=== PATIENT | male | born 1955 | race Caucasian/White ===

== ENCOUNTER 2021-09-10 15:08 | Day surgery (SDC) | payer OTHER ==
[2021-09-10] MEDS ORDERED: LIDOCAINE HCL 2% 100 MG/5 ML IJ ONE (15:09)
[2021-09-10] MEDS ORDERED: DIPRIVAN 200 MG/20 ML IV ONE (17:34)
[2021-09-10] MEDS ORDERED: Lactated Ringers 1,000 ML IV ONE (18:10)
--- NOTE | 2021-09-10 21:42 | XRAY ---
Indication: Bilateral L4-S1 MBB. Intraoperative fluoroscopy provided for 10 seconds. Single digital spot image submitted for interpretation demonstrates posterior needle tips projecting over the expected left and right L4-S1 nerve roots. Correlate with intraoperative findings/report.
--- NOTE | 2021-09-11 09:04 | XRAY ---
10 seconds fluoroscopy time in surgery for bilateral L4-S1 MBB.
== END 2021-09-10 18:06 | disposition home or self-care (01) ==
LOC: SDC-PAIN 15:08
PROVIDERS: ATTEND Psychiatry & Neurology Pain Medicine
DX: M47.816 Spondylosis without myelopathy or radiculopathy, lumbar region (principal); I10 Essential (primary) hypertension; E78.00 Pure hypercholesterolemia, unspecified; M19.90 Unspecified osteoarthritis, unspecified site; Z79.899 Other long term (current) drug therapy
CPT/HCPCS: 64493; 64494; 72020; 77002; J2704

== ENCOUNTER 2021-10-01 08:56 | Day surgery (SDC) | payer OTHER ==
[2021-10-01] MEDS ORDERED: Depo-Medrol 40 MG/ML IM ONE (08:57)
[2021-10-01] MEDS ORDERED: Xylocaine 1% Vial 30 ML PF IJ ONE (08:57)
[2021-10-01] MEDS ORDERED: BUPIVACAINE 0.5% VIAL IJ ONE (08:57)
--- NOTE | 2021-10-01 12:20 | XRAY ---
Indication: Right hip and right greater trochanter bursa injections. Intraoperative fluoroscopy provided for 36 seconds. 2 digital spot image submitted for interpretation demonstrates needle tip projecting lateral to right femur neck. Second needle tip lateral to greater trochanter. Small amount of contrast injected for both needle tip placement. Correlate with intraoperative findings/report.
--- NOTE | 2021-10-01 12:23 | XRAY ---
36 seconds fluoroscopy time in surgery for injections of the greater trochanter and intra-articular joint space of the right hip.
== END 2021-10-01 10:54 | disposition home or self-care (01) ==
LOC: SDC-PAIN 08:56
PROVIDERS: ATTEND Psychiatry & Neurology Pain Medicine
DX: M16.11 Unilateral primary osteoarthritis, right hip (principal); M70.61 Trochanteric bursitis, right hip; I10 Essential (primary) hypertension; Z79.899 Other long term (current) drug therapy
CPT/HCPCS: 20610; 73502; 77002; J1030; J2001; Q9966

== ENCOUNTER 2021-10-22 10:51 | Day surgery (SDC) | payer OTHER ==
[2021-10-22] MEDS ORDERED: BUPIVACAINE 0.5% VIAL IJ ONE (10:52)
[2021-10-22] MEDS ORDERED: Lactated Ringers 1,000 ML IV ONE (12:50)
[2021-10-22] MEDS ORDERED: DIPRIVAN 200 MG/20 ML IV ONE (13:14)
--- NOTE | 2021-10-22 15:02 | XRAY ---
Indication: Bilateral L4-S1 MBB. Intraoperative fluoroscopy provided for 11 seconds. Single digital spot image submitted for interpretation demonstrate posterior needle tips projecting over the expected left and right L4-S1 nerve roots. Correlate with intraoperative findings/report.
--- NOTE | 2021-10-22 15:10 | XRAY ---
11 seconds of fluoroscopy was used in surgery for a bilateral L4-S1 MBB.
== END 2021-10-22 13:33 | disposition home or self-care (01) ==
LOC: SDC-PAIN 10:51
PROVIDERS: ATTEND Psychiatry & Neurology Pain Medicine
DX: M47.816 Spondylosis without myelopathy or radiculopathy, lumbar region (principal); I10 Essential (primary) hypertension
CPT/HCPCS: 64493; 64494; 72020; 77002; J2704

== ENCOUNTER 2021-11-26 10:48 | Day surgery (SDC) | payer OTHER ==
[2021-11-26] MEDS ORDERED: BUPIVACAINE 0.5% VIAL IJ ONE (10:49)
[2021-11-26] MEDS ORDERED: Xylocaine 1% Vial 30 ML PF IJ ONE (10:49)
[2021-11-26] MEDS ORDERED: Depo-Medrol 40 MG/ML IM ONE (10:49)
[2021-11-26] MEDS ORDERED: DIPRIVAN 200 MG/20 ML IV ONE (14:16)
[2021-11-26] MEDS ORDERED: Lactated Ringers 1,000 ML IV ONE (14:48)
--- NOTE | 2021-11-26 15:03 | XRAY ---
Indication: Right L4-S1 RFA. Intraoperative fluoroscopy provided for 21 seconds. 4 digital spot image submitted for interpretation demonstrates posterior needle tips projecting over the expected right L4-S1 nerve roots. Correlate with intraoperative findings/report.
--- NOTE | 2021-11-26 15:11 | XRAY ---
21 seconds fluoroscopy time in surgery for right L4-S1 RFA.
== END 2021-11-26 14:50 | disposition home or self-care (01) ==
LOC: SDC-PAIN 10:48
PROVIDERS: ATTEND Psychiatry & Neurology Pain Medicine
DX: M47.816 Spondylosis without myelopathy or radiculopathy, lumbar region (principal); I10 Essential (primary) hypertension; Z79.899 Other long term (current) drug therapy
CPT/HCPCS: 64635; 64636; 72100; 77002; J1030; J2001; J2704

== ENCOUNTER 2021-12-03 10:44 | Day surgery (SDC) | payer OTHER ==
[2021-12-03] MEDS ORDERED: Xylocaine 1% Vial 30 ML PF IJ ONE (10:45)
[2021-12-03] MEDS ORDERED: BUPIVACAINE 0.5% VIAL IJ ONE (10:45)
[2021-12-03] MEDS ORDERED: Depo-Medrol 40 MG/ML IJ ONE (10:45)
[2021-12-03] MEDS ORDERED: Lactated Ringers 1,000 ML IV ONE (13:35)
[2021-12-03] MEDS ORDERED: DIPRIVAN 200 MG/20 ML IV ONE (13:46)
--- NOTE | 2021-12-03 14:39 | XRAY ---
Indication: Left L4-S1 RFA. Intraoperative fluoroscopy provided for 23 seconds. 2 digital spot image submitted for interpretation demonstrates posterior needle tips projecting over the expected left L4-S1 nerve roots. Correlate with intraoperative findings/report.
--- NOTE | 2021-12-03 16:21 | XRAY ---
23 seconds fluoroscopy time in surgery for left L4-S1 RFA.
== END 2021-12-03 14:13 | disposition home or self-care (01) ==
LOC: SDC-PAIN 10:44
PROVIDERS: ATTEND Psychiatry & Neurology Pain Medicine
DX: M47.816 Spondylosis without myelopathy or radiculopathy, lumbar region (principal); I10 Essential (primary) hypertension; Z79.899 Other long term (current) drug therapy
CPT/HCPCS: 64635; 64636; 72100; 77002; J1030; J2001; J2704

== ENCOUNTER 2021-12-25 12:54 | Day surgery (SDC) | payer OTHER ==
[2021-12-25] MEDS ORDERED: Xylocaine 1% Vial 30 ML PF IJ ONE (12:55)
[2021-12-25] MEDS ORDERED: Depo-Medrol 40 MG/ML IM ONE (12:55)
[2021-12-25] MEDS ORDERED: BUPIVACAINE 0.5% VIAL IJ ONE (12:55)
[2021-12-25] MEDS ORDERED: Lactated Ringers 1,000 ML IV ONE (13:50)
--- NOTE | 2021-12-26 09:53 | XRAY ---
Indication: Right shoulder injection. Intraoperative fluoroscopy provided for 28 seconds. 2 digital spot image submitted for interpretation demonstrates needle tip projecting right subacromial. Small amount of contrast in subacromial and glenohumeral joint injected for needle tip placement. Correlate with intraoperative findings/report.
--- NOTE | 2021-12-26 09:59 | XRAY ---
28 seconds fluoroscopy time in surgery for intra-articular and subachromial injections of the right shoulder.
== END 2021-12-25 14:43 | disposition home or self-care (01) ==
LOC: SDC-PAIN 12:54
PROVIDERS: ATTEND Psychiatry & Neurology Pain Medicine
DX: M19.011 Primary osteoarthritis, right shoulder (principal); M75.51 Bursitis of right shoulder; I10 Essential (primary) hypertension
CPT/HCPCS: 20610; 73030; 77002; J1030; J2001; Q9966

== ENCOUNTER 2022-01-21 12:20 | Day surgery (SDC) | payer OTHER ==
[2022-01-21] MEDS ORDERED: Xylocaine 1% Vial 30 ML PF IJ ONE (12:21)
[2022-01-21] MEDS ORDERED: Depo-Medrol 40 MG/ML IM ONE (12:21)
[2022-01-21] MEDS ORDERED: BUPIVACAINE 0.5% VIAL IJ ONE (12:21)
--- NOTE | 2022-01-21 15:00 | XRAY ---
Indication: Right hip injection. Intraoperative fluoroscopy provided for 19 seconds. Single digital spot image submitted for interpretation demonstrates needle tip projecting lateral to the right femur neck. Small amount of contrast injected for needle tip placement. Correlate with intraoperative findings/report.
--- NOTE | 2022-01-21 16:25 | XRAY ---
19 seconds of fluoroscopy was used in surgery for a right intra-articular hip injection.
== END 2022-01-21 14:35 | disposition home or self-care (01) ==
LOC: SDC-PAIN 12:20
PROVIDERS: ATTEND Psychiatry & Neurology Pain Medicine
DX: M16.11 Unilateral primary osteoarthritis, right hip (principal); I10 Essential (primary) hypertension; Z79.899 Other long term (current) drug therapy
CPT/HCPCS: 20610; 73501; 77002; J1030; J2001; Q9966

== ENCOUNTER 2022-05-28 11:47 | Observation (INO) | payer OTHER ==
[2022-05-28] MEDS ORDERED: Sodium Chloride 0.9% 1000 ML 1,000 ML IV SCH ×2 (12:00→15:15)
--- NOTE | 2022-05-28 12:22 | ERPHSYRPT ---
- History of Present Illness Time Seen by Provider: 05/28/22 12:00 Historian: patient Exam Limitations: no limitations Patient Subjective Stated Complaint: C/O right lower abdominal pain with black stools X 2 weeks. No N/V. Triage Nursing Assessment: Patient ambulates with a walker and has a cast to his LLE from recent surgery. He is alert and oriented and answering questions appropriately. Abdomen is soft and tender to RLQ. Distant bowel sounds. Physician History: Patient is a 66-year-old male presents to our ED with complaints of abdominal pain and dark tarry stools. Patient states symptoms started approximately 2 weeks ago after starting IV antibiotics through a PICC line. 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 He is currently on antibiotics for complications relating to this left knee TKA. Of note patient is also on iron supplementation. This has the potential to turn stools a dark color resembling melena. Patient's pain is periumbilical however it appears that the pain is worse just to the right of the umbilicus. No signs of trauma. No fever. No haily diarrhea or rash. Symptoms are moderate in intensity. Palpation reproduces symptoms. Patient declined pain medication. Patient denies a history of the same. He voices no other complaints or concerns at this time. Of note patient's last colonoscopy was 14 years ago Portions of this note were created with voice recognition technology. There may be grammatical, spelling, punctuation or sound alike errors Timing/Duration: week(s) (2 weeks) Activities at Onset: none Quality: aching Abdominal Pain Onset Location: periumbilical (Periumbilical tenderness greatest at right of umbilicus) Pain Radiation: no radiation Severity of Pain-Max: moderate Severity of Pain-Current: mild Modifying Factors: Improves With: palpation Associated Symptoms: other (Dark stools) Previous symptoms: no prior history Allergies/Adverse Reactions: No Known Drug Allergies Allergy (Verified 05/28/22 11:53) Home Medications: Amlodipine Besylate 5 mg [Norvasc 5 mg] 1 tab PO DAILY 05/28/22 [History] Atorvastatin Calcium [Lipitor 20MG Tablet] 1 cap PO DAILY 05/28/22 [History] Cyclobenzaprine HCl 10 mg [Cyclobenzaprine 10 MG] 1 tab PO Q12H PRN PRN 05/28/22 [History] Ferrous Sulfate 1 tab PO BID 05/28/22 [History] Folic Acid 1 mg [Folate 1 mg] 1 tab PO DAILY 05/28/22 [History] Gabapentin [Neurontin ] 1 cap PO TID 05/28/22 [History] Omeprazole 1 cap PO DAILY 05/28/22 [History] lisinopriL [Lisinopril] 1 tab PO DAILY 05/28/22 [History] Hx Tetanus, Diphtheria Vaccination/Date Given: Yes Hx Influenza Vaccination/Date Given: Yes Hx Pneumococcal Vaccination/Date Given: No Immunizations Up to Date: Yes Travel Risk - International Travel Have you traveled outside of the country in past 3 weeks: No - Coronavirus Screening Are you exhibiting any of the following symptoms?: Yes Symptoms: Shortness of Breath, Vomiting/Diarrhea Close contact with a COVID-19 positive Pt in past 14-21 Days: No - Vaccine Status Have you recieved a Covid-19 vaccination: Yes Fire Marshal: Unknown - Vaccination Dates Dates if Unknown: unsure - Review of Systems Constitutional: No Symptoms, No Fever, No Chills Eyes: No Symptoms Ears, Nose, & Throat: No Symptoms Respiratory: No Symptoms, No Cough, No Dyspnea Cardiac: No Symptoms, No Chest Pain, No Edema, No Syncope Abdominal/Gastrointestinal: No Symptoms, No Abdominal Pain, No Nausea, No Vomiting, No Diarrhea Genitourinary Symptoms: No Symptoms, No Dysuria Musculoskeletal: No Symptoms, No Back Pain, No Neck Pain Skin: No Symptoms, No Rash Neurological: No Symptoms, No Dizziness, No Focal Weakness, No Sensory Changes Psychological: No Symptoms Endocrine: No Symptoms Hematologic/Lymphatic: No Symptoms Immunological/Allergic: No Symptoms All Other Systems: Reviewed and Negative - Past Medical History Pertinent Past Medical History: Yes Neurological History: No Pertinent History Cardiac History: High Cholesterol, Hypertension Respiratory History: COPD Endocrine Medical History: No Pertinent History Musculoskeletal History: Osteoarthritis GI Medical History: GERD, Gallbladder Disease, Polyps History: No Pertinent History Psycho-Social History: No Pertinent History Male Reproductive Disorders: No Pertinent History Other Medical History: Anemia - Past Surgical History Past Surgical History: Yes Gastrointestinal: Appendectomy, Cholecystectomy Musculoskeletal: Orthopedic Surgery Other Surgical History: knee surgery, colon polyps removed - Social History Smoking Status: Current every day smoker How long have you smoked: 40 Exposure to second hand smoke: No Drug Use: marijuana Patient Lives Alone: Yes - Nursing Vital Signs Nursing Vital Signs: Initial Vital Signs Temperature 98 F 05/28/22 11:56 Pulse Rate 108 H 05/28/22 11:56 Respiratory Rate 30 H 05/28/22 11:56 Blood Pressure 120/80 05/28/22 11:56 O2 Sat by Pulse Oximetry 98 05/28/22 11:56 Pain Scale Pain Intensity 0 - Physical Exam General Appearance: no apparent distress, alert Eye Exam: PERRL/EOMI, eyes nml inspection Ears, Nose, Throat Exam: normal ENT inspection, TMs normal, pharynx normal, moist mucous membranes Neck Exam: normal inspection, non-tender, supple, full range of motion Respiratory Exam: normal breath sounds, lungs clear, airway intact, No respiratory distress Cardiovascular Exam: regular rate/rhythm, normal heart sounds, normal peripheral pulses Gastrointestinal/Abdomen Exam: soft, normal bowel sounds, tenderness (Tenderness to palpation along the periumbilical region however seems to be somewhat more tender to the right of the umbilicus), No mass, No guarding Back Exam: normal inspection, normal range of motion, No CVA tenderness, No vertebral tenderness Extremity Exam: normal inspection, normal range of motion, pelvis stable Neurologic Exam: alert, oriented x 3, cooperative, normal mood/affect, nml cerebellar function, sensation nml, No motor deficits Skin Exam: normal color, warm, dry Lymphatic Exam: No adenopathy SpO2 Interpretation: normal SpO2: 98 O2 Delivery: Room Air - Course Nursing assessment & vital signs reviewed: Yes EKG Interpreted by Me: RATE (102), Sinus Rhythm, NORMAL AXIS, NORMAL INTERVALS - CT Exams Abdomen/Pelvis CT Interpretation: Tele-radiologist Report (Diverticulosis, hepatic cyst, aortoiliac calcifications, chronic bony findings. Old granulomatous disease) Ordered Tests: Active Orders 24 hr Category Date Time Status EKG-ER Only STAT Care 05/28/22 11:59 Active IV Insertion STAT Care 05/28/22 11:59 Active ABDOMEN AND PELVIS W/0 CONTRAS [CT] Stat Exams 05/28/22 12:01 Completed CBC W DIFF Stat Lab 05/28/22 11:59 Completed CMP Stat Lab 05/28/22 12:13 Completed TROPONIN Q3H Lab 05/28/22 12:13 Completed TROPONIN Q3H Lab 05/28/22 15:00 Ordered TROPONIN Q3H Lab 05/28/22 18:00 Ordered TROPONIN Q3H Lab 05/28/22 21:00 Ordered TROPONIN Q3H Lab 05/29/22 00:00 Ordered UA W/RFX CULTURE Stat Lab 05/28/22 12:13 Completed Medication Summary Generic Name Dose Route Start Last Admin Trade Name Dayan PRN Reason Stop Dose Admin Sodium Chloride 1,000 mls @ 100 mls/hr 05/28/22 12:00 05/28/22 12:15 Sodium Chloride 0.9% 1000 Ml IV 06/27/22 11:59 100 mls/hr .Q10H ANGELIA Administration Discontinued Medications Generic Name Dose Route Start Last Admin Trade Name Freq PRN Reason Stop Dose Admin Pantoprazole Sodium 40 mg 05/28/22 13:46 05/28/22 13:50 Pantoprazole 40 Mg Vial IV 05/28/22 13:47 40 mg STAT ONE Administration Pantoprazole Sodium Confirm 05/28/22 13:49 Pantoprazole 40 Mg Vial Administered 05/28/22 13:50 Dose 40 mg IV .[employer] ONE Lab/Rad Data: Laboratory Result Diagrams 05/28/22 11:59 05/28/22 12:13 Laboratory Results 05/28/22 05/28/22 05/28/22 Range/Units 13:20 12:13 12:13 WBC (4.0-10.5) x10^3/uL RBC (4.1-5.6) x10^6/uL Hgb (12.5-18.0) g/dL Hct (42-50) % MCV (78-100) fL MCH (26-32) pg MCHC (32-36) g/dL RDW (11.5-14.0) % Plt Count (150-450) x10^3/uL MPV (7.5-11.0) fL Gran % (36.0-66.0) % Immature Gran % (Auto) (0.00-0.4) % Nucleat RBC Rel Count (0.00-0.1) % Eos # (Auto) (0-0.5) x10^3/uL Immature Gran # (Auto) (0.00-0.03) x10^3u/L Absolute Lymphs (auto) (1.0-4.6) x10^3/uL Absolute Monos (auto) (0.0-1.3) x10^3/uL Absolute Nucleated RBC (0.00-0.01) x10^3u/L Lymphocytes % (24.0-44.0) % Monocytes % (0.0-12.0) % Eosinophils % (0.00-5.0) % Basophils % (0.0-0.4) % Absolute Granulocytes (1.4-6.9) x10^3/uL Basophils # (0-0.4) x10^3/uL Sodium (137-145) mmol/L Potassium (3.5-5.1) mmol/L Chloride (98-107) mmol/L Carbon Dioxide (22-30) mmol/L Anion Gap (5-15) MEQ/L BUN (9-20) mg/dL Creatinine (0.66-1.25) mg/dL Estimated GFR ML/MIN Glucose (74-106) mg/dL Calcium (8.4-10.2) mg/dL Total Bilirubin (0.2-1.3) mg/dL AST (17-59) U/L ALT (0-50) U/L Alkaline Phosphatase (38-126) U/L Troponin I < 0.012 (0.000-0.034) ng/mL Serum Total Protein (6.3-8.2) g/dL Albumin (3.5-5.0) g/dL Urinalys Dipstick Clnc MAIN LAB Urine Color YELLOW (YELLOW) Urine Appearance CLEAR (CLEAR) Urine pH 6.0 (5-6) Ur Specific [place] 1.025 (1.005-1.025) POC Urine Protein Conf NEGATIVE (Negative) Urine Ketones NEGATIVE (NEGATIVE) Urine Nitrite NEGATIVE (NEGATIVE) Urine Bilirubin NEGATIVE (NEGATIVE) Urine Urobilinogen 0.2 (0-1) mg/dL Urine Leukocytes NEGATIVE (NEGATIVE) Urine WBC (Auto) 3-5 (0-5) /HPF Urine RBC (Auto) 0-2 (0-2) /HPF U Hyaline Cast (Auto) 0-2 (0-2) /LPF Urine RBC NEGATIVE (0-5) Ariel/ul Ur Culture Indicated? NO Urine Glucose NEGATIVE (NEGATIVE) mg/dL Influenza Type A Ag NEGATIVE (NEGATIVE) Influenza Type B Ag NEGATIVE (NEGATIVE) RSV (PCR) NEGATIVE (Negative) SARS-CoV-2 (PCR) NEGATIVE (NEGATIVE) 05/28/22 05/28/22 Range/Units 12:13 11:59 WBC 10.9 H (4.0-10.5) x10^3/uL RBC 3.56 L (4.1-5.6) x10^6/uL Hgb 10.1 L (12.5-18.0) g/dL Hct 32.2 L (42-50) % MCV 90.4 (78-100) fL MCH 28.4 (26-32) pg MCHC 31.4 L (32-36) g/dL RDW 14.6 H (11.5-14.0) % Plt Count 364 (150-450) x10^3/uL MPV 9.9 (7.5-11.0) fL Gran % 66.9 H (36.0-66.0) % Immature Gran % (Auto) 0.4 (0.00-0.4) % Nucleat RBC Rel Count 0.0 (0.00-0.1) % Eos # (Auto) 0.34 (0-0.5) x10^3/uL Immature Gran # (Auto) 0.04 H (0.00-0.03) x10^3u/L Absolute Lymphs (auto) 2.25 (1.0-4.6) x10^3/uL Absolute Monos (auto) 0.90 (0.0-1.3) x10^3/uL Absolute Nucleated RBC 0.00 (0.00-0.01) x10^3u/L Lymphocytes % 20.7 L (24.0-44.0) % Monocytes % 8.3 (0.0-12.0) % Eosinophils % 3.1 (0.00-5.0) % Basophils % 0.6 (0.0-0.4) % Absolute Granulocytes 7.30 H (1.4-6.9) x10^3/uL Basophils # 0.06 (0-0.4) x10^3/uL Sodium 136 L (137-145) mmol/L Potassium 4.6 (3.5-5.1) mmol/L Chloride 109 H (98-107) mmol/L Carbon Dioxide 20 L (22-30) mmol/L Anion Gap 11.7 (5-15) MEQ/L BUN 22 H (9-20) mg/dL Creatinine 1.79 H (0.66-1.25) mg/dL Estimated GFR 40.8 ML/MIN Glucose 89 (74-106) mg/dL Calcium 9.1 (8.4-10.2) mg/dL Total Bilirubin 0.30 (0.2-1.3) mg/dL AST 27 (17-59) U/L ALT 26 (0-50) U/L Alkaline Phosphatase 129 H (38-126) U/L Troponin I (0.000-0.034) ng/mL Serum Total Protein 7.1 (6.3-8.2) g/dL Albumin 3.7 (3.5-5.0) g/dL Urinalys Dipstick Clnc Urine Color (YELLOW) Urine Appearance (CLEAR) Urine pH (5-6) Ur Specific [place] (1.005-1.025) POC Urine Protein Conf (Negative) Urine Ketones (NEGATIVE) Urine Nitrite (NEGATIVE) Urine Bilirubin (NEGATIVE) Urine Urobilinogen (0-1) mg/dL Urine Leukocytes (NEGATIVE) Urine WBC (Auto) (0-5) /HPF Urine RBC (Auto) (0-2) /HPF U Hyaline Cast (Auto) (0-2) /LPF Urine RBC (0-5) Ariel/ul Ur Culture Indicated? Urine Glucose (NEGATIVE) mg/dL Influenza Type A Ag (NEGATIVE) Influenza Type B Ag (NEGATIVE) RSV (PCR) (Negative) SARS-CoV-2 (PCR) (NEGATIVE) - Progress Progress: improved Progress Note: Patient reassessed. Pain improved after administration of pain medication. CT abdomen pelvis negative for acute intra-abdominal pathology. Renal function is compromised. Creatinine is 1.79 which is significantly higher than his baseline. Patient concerned with dark tarry stools. Patient did not produce stools in our ED so we were not able to confirm whether or not patient actually has a GI bleed. Patient is also on iron which could also turned stools dark. However in light of patient's abdominal pain and dark tarry stools low hemogl obin and compromised renal function we will admit patient for further evaluation and treatment. Case discussed with Dr. Billingsley who accepts admission to observation. Plan of care discussed with patient. He agrees to admission at [facility] for further evaluation and treatment. Patient received IV fluids in our ED. Pain was treated. Patient will receive a dose of Protonix prior to transfer to floor. Portions of this note were created with voice recognition technology. There may be grammatical, spelling, punctuation or sound alike errors 05/28/22 13:44 COVID test negative 05/28/22 14:[address] Emi Will see patient in: hospital (observation) Counseled pt/family regarding: lab results, diagnosis, rad results - Departure Departure Disposition: Observation Clinical Impression: Diverticulosis, Abdominal pain, Hepatic cyst, Aortoiliac calcification, Arthritis, Old granulomatous disease, Leukocytosis, Normocytic anemia, Dark stools, Acute renal injury Condition: Stable Critical Care Time: No Referrals: [facility] [Primary Care Provider] - Follow up/PCP as directed
[2022-05-28 12:23] LABS: Basophil (Absolute #) 0.06 x10^3/uL (0-0.4); Eosinophil % 3.1 % (0.00-5.0); Eosinophil (Absolute #) 0.34 x10^3/uL (0-0.5); Hematocrit 32.2 % (42-50); Hemoglobin 10.1 g/dL (12.5-18.0); Lymphocyte (Absolute #) 2.25 x10^3/uL (1.0-4.6); Lymphocytes % 20.7 % (24.0-44.0); Mean Cell Volume 90.4 fL (78-100); Mean Corpuscular Hemoglobin 28.4 pg (26-32); Mean Corpuscular Hgb Concent. 31.4 g/dL (32-36); Mean Platelet Volume 9.9 fL (7.5-11.0); Monocytes % 8.3 % (0.0-12.0); Neutrophil % 66.9 % (36.0-66.0); Platelet Count 364 x10^3/uL (150-450); Red Blood Count 3.56 x10^6/uL (4.1-5.6); Red Cell Distribution Width 14.6 % (11.5-14.0); White Blood Count 10.9 x10^3/uL (4.0-10.5)
[2022-05-28 12:26] LABS: Hyaline Casts 0-2 /LPF (0-2); RBC 0-2 /HPF (0-2)
[2022-05-28 12:27] LABS: Appearance CLEAR (CLEAR)
[2022-05-28 12:28] LABS: Bilirubin NEGATIVE (NEGATIVE); Glucose NEGATIVE (NEGATIVE); Ketones NEGATIVE (NEGATIVE); Nitrite NEGATIVE (NEGATIVE); Protein,Urine Dip NEGATIVE (Negative); RBC NEGATIVE Ery/ul (0-5); Specific Gravity 1.025 (1.005-1.025); Urine Cultured Indicated? NO; Urobilinogen 0.2 mg/dL (0-1)
[2022-05-28 12:29] LABS: Dipstick done @ ? MAIN LAB
[2022-05-28 12:52] LABS: ALBUMIN 3.7 g/dL (3.5-5.0); ANION GAP 11.7 MEQ/L (5-15); BILIRUBIN,TOTAL 0.3 mg/dL (0.2-1.3); Calcium 9.1 mg/dL (8.4-10.2); Creatinine 1 1.79 mg/dL (0.66-1.25); EST GLOMERULAR FILTRATION RATE 40.8 ML/MIN; Potassium 4.6 mmol/L (3.5-5.1); Total Protein 7.1 g/dL (6.3-8.2)
--- NOTE | 2022-05-28 13:26 | XRAY ---
Indication: Right lower quadrant pain. Black stools. Multiple contiguous axial images obtained through the abdomen and pelvis without contrast. Comparison: May 14, 2016 Lung bases are clear. Heart not enlarged. Noncontrasted stomach and bowel loops appear nonobstructed. Appendix not visualized. Again scattered descending and sigmoid diverticulosis without diverticulitis. No free fluid/air. Again incidental 1 cm inferior right lobe hepatic cyst, splenic calcified granulomas, and cholecystectomy. Remaining liver, pancreas, spleen, adrenal glands, kidneys, ureters, and bladder are unremarkable for noncontrast exam. There remains mild scattered aortoiliac calcifications without AAA. Osseous structures intact again with mild degenerative changes throughout the spine. Impression: 1. Again colonic diverticulosis, hepatic cyst, chronic bony findings, and old granulomatous disease. 2. Remaining CT abdomen/pelvis without contrast exam is again negative.
[2022-05-28] MEDS ORDERED: PROTONIX 40 MG IV IV ONE ×2 (13:46→13:49)
[2022-05-28 14:15] LABS: INFLUENZA A NEGATIVE (NEGATIVE); INFLUENZA B NEGATIVE (NEGATIVE); RESPIRATORY SYNCTIAL VIRUS NEGATIVE (Negative); SARS-CoV-2 Xpert Express NEGATIVE (NEGATIVE)
[2022-05-28] MEDS ORDERED: Zofran 4 MG/2 ML VIAL IV PRN (15:10)
[2022-05-28] MEDS ORDERED: Miralax Powder 17GM PACKET PO PRN (16:56)
[2022-05-28] MEDS ORDERED: Cyclobenzaprine 10 MG PO PRN (16:56)
[2022-05-28] MEDS: MORPHINE SULFATE 2 MG INJ IV PRN (20:21)
[2022-05-28] MEDS: D5W/0.45NS W/ 20mEq KCl 1000 ML 1,000 ML IV SCH (20:22)
[2022-05-28] MEDS ORDERED: NON-FORMULARY ITEM (Atorvastatin Calcium 20 MG Tab) PO SCH (22:00)
[2022-05-28] MEDS ORDERED: ZOCOR 20MG PO SCH (22:00)
[2022-05-28] MEDS: NEURONTIN PO SCH (22:29)
[2022-05-28] MEDS: FEOSOL 325 MG PO SCH (22:30)
[2022-05-29] MEDS: D5W/0.45NS W/ 20mEq KCl 1000 ML 1,000 ML IV SCH ×2 (01:57→02:24)
[2022-05-29] MEDS: MORPHINE SULFATE 2 MG INJ IV PRN (02:14)
[2022-05-29 04:20] VITALS: O2SAT 95
[2022-05-29 05:19] LABS: Absolute Neutrophil Ct (ANC) 4.29 x10^3/uL (1.4-6.9); Basophil (Absolute #) 0.04 x10^3/uL (0-0.4); Eosinophil % 4.6 % (0.00-5.0); Eosinophil (Absolute #) 0.32 x10^3/uL (0-0.5); Hematocrit 27.5 % (42-50); Hemoglobin 8.4 g/dL (12.5-18.0); Lymphocyte (Absolute #) 1.76 x10^3/uL (1.0-4.6); Lymphocytes % 25.3 % (24.0-44.0); Mean Cell Volume 92.6 fL (78-100); Mean Corpuscular Hemoglobin 28.3 pg (26-32); Mean Corpuscular Hgb Concent. 30.5 g/dL (32-36); Mean Platelet Volume 10.3 fL (7.5-11.0); Monocyte (Absolute #) 0.51 x10^3/uL (0.0-1.3); Monocytes % 7.3 % (0.0-12.0); Neutrophil % 61.8 % (36.0-66.0); Platelet Count 280 x10^3/uL (150-450); Red Blood Count 2.97 x10^6/uL (4.1-5.6); Red Cell Distribution Width 14.5 % (11.5-14.0)
[2022-05-29 05:51] LABS: BLOOD UREA NITROGEN 15 mg/dL (9-20); SGOT/AST 20 U/L (17-59)
[2022-05-29 06:38] LABS: ALBUMIN 2.8 g/dL (3.5-5.0); ALKALINE PHOSPHATASE 99 U/L (38-126); ANION GAP 10.2 MEQ/L (5-15); CHLORIDE 106 mmol/L (98-107); Calcium 7.5 mg/dL (8.4-10.2); Carbon Dioxide 18 mmol/L (22-30); Creatinine 1 1.08 mg/dL (0.66-1.25); EST GLOMERULAR FILTRATION RATE > 60.0 ML/MIN; SGPT/ALT 20 U/L (0-50); SODIUM 127 mmol/L (137-145); Total Protein 5.6 g/dL (6.3-8.2)
[2022-05-29 06:45] LABS: Potassium 6.9 mmol/L (3.5-5.1)
[2022-05-29 06:46] LABS: Glucose 510 mg/dL (74-106)
[2022-05-29 07:08] LABS: Hematocrit 33.7 % (42-50); Hemoglobin 10.2 g/dL (12.5-18.0); Mean Cell Volume 91.6 fL (78-100); Mean Corpuscular Hemoglobin 27.7 pg (26-32); Mean Corpuscular Hgb Concent. 30.3 g/dL (32-36); Mean Platelet Volume 9.5 fL (7.5-11.0); Platelet Count 347 x10^3/uL (150-450); Red Blood Count 3.68 x10^6/uL (4.1-5.6); Red Cell Distribution Width 14.4 % (11.5-14.0)
[2022-05-29 07:10] LABS: White Blood Count 7.7 x10^3/uL (4.0-10.5)
[2022-05-29 07:27] LABS: ALBUMIN 3.5 g/dL (3.5-5.0); BILIRUBIN,TOTAL 0.3 mg/dL (0.2-1.3); Calcium 8.8 mg/dL (8.4-10.2); Creatinine 1 1.31 mg/dL (0.66-1.25); EST GLOMERULAR FILTRATION RATE 58.6 ML/MIN; Total Protein 6.9 g/dL (6.3-8.2)
[2022-05-29 09:07] VITALS: BP 137/78; PULSE 92
[2022-05-29] MEDS: FEOSOL 325 MG PO SCH (09:56)
[2022-05-29] MEDS: NEURONTIN PO SCH (09:57)
[2022-05-29] MEDS ORDERED: NON-FORMULARY ITEM (Omeprazole [Omeprazole] 20 MG Capsule.Dr) PO SCH (10:00)
[2022-05-29] MEDS ORDERED: NORVASC 5 MG PO SCH (10:00)
[2022-05-29] MEDS ORDERED: Protonix 40MG Tablet PO SCH (10:00)
[2022-05-29] MEDS ORDERED: FOLATE 1 MG PO SCH (10:00)
[2022-05-29] MEDS ORDERED: PROTONIX 40 MG IV IV SCH (10:00)
== END 2022-05-29 10:58 | disposition home or self-care (01) ==
LOC: ED 11:47 → MED SURG 14:28
PROVIDERS: ADMIT Family Medicine; ATTEND Family Medicine
DX: R10.31 Right lower quadrant pain (principal); R19.5 Other fecal abnormalities; D64.9 Anemia, unspecified; I10 Essential (primary) hypertension; E78.00 Pure hypercholesterolemia, unspecified; Z72.0 Tobacco use; Z98.890 Other specified postprocedural states; Z79.899 Other long term (current) drug therapy; Z20.828 Contact with and (suspected) exposure to other viral communicable diseases; N17.9 Acute kidney failure, unspecified
CPT/HCPCS: 0241U; 36415; 74176; 80053; 81015; 84484; 85025; 85027; 85652; 93005; 93268; 94760; 96374; 99285; G0328; G0378; 82274; J1642; J2270; A9270-GY

== ENCOUNTER 2022-09-09 15:09 | Emergency (ER) | payer MEDICARE ==
--- NOTE | 2022-09-09 15:18 | ERPHSYRPT ---
- History of Present Illness Time Seen by Provider: 09/09/22 15:18 Source: patient Exam Limitations: no limitations Physician History: This is a 67-year-old white male patient of Dr. David, infectious disease specialist out of [facility] who presents to the emergency room with tachycardia and mild shortness of air. Patient states that the symptoms started relatively soon after the patient's PICC line was flushed with saline and heparin mixture. He felt chills and shakiness within an hour after this was performed. Patient also was diaphoretic per his report. He denies chest pain at this time. He has no abdominal pain. He has no nausea vomiting or diarrhea symptoms. Patient has a right arm PICC line in place that he feels is infected and wants removed. Patient had similar symptoms in the past when his PICC line was infected. Patient does not recall the antibiotics that he is taking but he did receive an antibiotic yesterday via the PICC line per his report. On 08/20/2022 patient had his left knee hardware removed and a spacer was placed. He has no pain in this site. Patient has a history of hypertension, gastroesophageal reflux disease and hyperlipidemia. Patient does not want anything else done other than removing the PICC line and culturing the tip. He stated that the last time this happened they remove the PICC line and within an hour he felt much better. Patient presents with low-grade fever of 99.6. Timing/Duration: today Severity: mild Associated Symptoms: shortness of breath (At initial flushing earlier today), diaphoresis (At initial flushing earlier today.), chills (At initial flushing earlier today.), fever (Low-grade fever) Allergies/Adverse Reactions: iron Adverse Reaction (Verified 09/09/22 15:29) black stool, kidney failure Home Medications: Amlodipine Besylate 5 mg [Norvasc 5 mg] 5 mg PO DAILY 05/28/22 [History] Atorvastatin Calcium [Lipitor 20MG Tablet] 20 mg PO HS 05/28/22 [History] Cyclobenzaprine HCl 10 mg [Cyclobenzaprine 10 MG] 10 mg PO Q12H PRN PRN 05/28/22 [History] Fenofibrate,Micronized [Fenofibrate] 134 mg PO DAILY 05/28/22 [History] Ferrous Sulfate 325 mg PO BID 05/28/22 [History] Folic Acid 1 mg [Folate 1 mg] 1 mg PO DAILY 05/28/22 [History] Gabapentin [Neurontin ] 300 mg PO TID 05/28/22 [History] Richland-3 Fatty Acids [Richland-3] 1,000 mg PO DAILY 05/28/22 [History] Omeprazole 20 mg PO DAILY 05/28/22 [History] Polyethylene Glycol 3350 [Miralax] 17 gm PO Q12H PRN PRN 05/28/22 [History] lisinopriL [Lisinopril] 40 mg PO DAILY 05/28/22 [History] Hx Tetanus, Diphtheria Vaccination/Date Given: Yes Hx Influenza Vaccination/Date Given: Yes Hx Pneumococcal Vaccination/Date Given: No Travel Risk - International Travel Have you traveled outside of the country in past 3 weeks: No - Coronavirus Screening Are you exhibiting any of the following symptoms?: No Close contact with a COVID-19 positive Pt in past 14-21 Days: No - Vaccine Status Have you recieved a Covid-19 vaccination: Yes Psychiatric Lpn: Entitle - Vaccination Dates Date of 2cond Vaccination (if applicable): UNKNOWN - Review of Systems Constitutional: Fever Eyes: No Symptoms Ears, Nose, & Throat: No Symptoms Respiratory: No Symptoms Cardiac: No Symptoms Abdominal/Gastrointestinal: No Symptoms Genitourinary Symptoms: No Symptoms Musculoskeletal: No Symptoms Skin: No Symptoms Neurological: No Symptoms Psychological: No Symptoms Endocrine: Other Hematologic/Lymphatic: No Symptoms (Diaphoresis earlier) Immunological/Allergic: No Symptoms All Other Systems: Reviewed and Negative - Past Medical History Pertinent Past Medical History: Yes Neurological History: No Pertinent History ENT History: No Pertinent History Cardiac History: High Cholesterol, Hypertension Respiratory History: COPD Endocrine Medical History: No Pertinent History Musculoskeletal History: Osteoarthritis GI Medical History: GERD, Polyps History: No Pertinent History Psycho-Social History: No Pertinent History Male Reproductive Disorders: No Pertinent History Other Medical History: Anemia - Past Surgical History Past Surgical History: Yes Neuro Surgical History: No Pertinent History Cardiac: No Pertinent History Respiratory: No Pertinent History Gastrointestinal: Appendectomy, Cholecystectomy, Hernia Repair Genitourinary: No Pertinent History Musculoskeletal: Orthopedic Surgery Male Surgical History: No Pertinent History Other Surgical History: MULTIPLES knee surgery, colon polyps removed - Social History Smoking Status: Current every day smoker How long have you smoked: 45 YEARS Exposure to second hand smoke: No Drug Use: marijuana Patient Lives Alone: Yes - Nursing Vital Signs Nursing Vital Signs: Initial Vital Signs Temperature 99.6 F 09/09/22 15:10 Pulse Rate 129 H 09/09/22 15:10 Respiratory Rate 24 09/09/22 15:10 Blood Pressure 114/73 09/09/22 15:10 O2 Sat by Pulse Oximetry 97 09/09/22 15:10 Pain Scale Pain Intensity 0 - Physical Exam General Appearance: no apparent distress, alert Eye Exam: PERRL/EOMI, eyes nml inspection Ears, Nose, Throat Exam: normal ENT inspection, moist mucous membranes Neck Exam: normal inspection, non-tender, supple, full range of motion Respiratory Exam: normal breath sounds, lungs clear, airway intact, No chest tenderness, No respiratory distress Cardiovascular Exam: tachycardia Gastrointestinal/Abdomen Exam: soft, normal bowel sounds, No tenderness Rectal Exam: not done Extremity Exam: normal range of motion, pelvis stable, other (Right upper extremity PICC line. No evidence of proximal streaking. No evidence of cellulitis. 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 The area of the PICC line site was removed sterilely with sterile gloves. Using Betadine solution wide preparation of the skin was performed. After removal of the dressing the PICC line was removed sterilely and the distal tip was sterilely placed in a sterile container to be sent for culture and sensitivity. The area was then covered with 4 x 4 gauze and a pressure dressing was applied including Coban. There were no complicatio ns and the patient Toller procedure well. Ordered Tests: Active Orders 24 hr Category Date Time Status CULTURE, CATHETER TIP Stat Lab 09/09/22 Ordered - Progress Progress: unchanged Progress Note: 09/09/22 16:13 Medical decision making: This patient was adamant that he did not want anything done other than removal of the right upper extremity PICC line. Patient is certain that the catheter line is infected. He has been through this before. He did not want any additional antibiotics. He did not want any type of work- up. I did explain to him that his symptoms could worsen. I explained to him that the catheter might not be infected and maybe his symptoms are due to some other medical issue that could be life-threatening such as myocardial infarction or pulmonary embolus. He is aware. He is awake alert he is oriented and he only wants the catheter removed. Patient signed AGAINST MEDICAL ADVICE and refusal of treatment. Patient was told that he can return back to our emergency room or to the emergency room at [facility] where his infectious disease specialist is. Patient signed the form for AMA/refusal of treatment/testing Counseled pt/family regarding: diagnosis, need for follow-up - Departure Departure Disposition: AMA Clinical Impression: Fever, PIC line (peripherally inserted central catheter) removal Condition: Fair Critical Care Time: No Referrals: [facility] [Primary Care Provider] - Follow up/PCP as directed Additional Instructions: May remove the dressing in 24 hours. Return to the emergency department at [facility] if symptoms worsen. Take all your medications as prescribed. If there are no contraindications to use Tylenol and ibuprofen for fever and pain control.
[2022-09-09 15:50] VITALS: O2SAT 97
[2022-09-09 16:29] VITALS: BP 135/76; PULSE 88
== END 2022-09-09 16:29 | disposition left against medical advice (07) ==
LOC: ED 15:09
DX: R50.9 Fever, unspecified (principal); Z46.89 Encounter for fitting and adjustment of other specified devices; R00.0 Tachycardia, unspecified; R06.02 Shortness of breath; I10 Essential (primary) hypertension; E78.5 Hyperlipidemia, unspecified; Z72.0 Tobacco use; Z79.899 Other long term (current) drug therapy
CPT/HCPCS: 36590; 87070; 87077; 87186; 99281

== ENCOUNTER 2023-04-28 15:11 | Day surgery (SDC) | payer MEDICARE ==
[2023-04-28] MEDS ORDERED: LIDOCAINE HCL 1% 50 MG/5 ML VL PF IJ ONE (15:12)
[2023-04-28] MEDS ORDERED: BUPIVACAINE 0.5% VIAL IJ ONE (15:12)
[2023-04-28] MEDS ORDERED: Depo-Medrol 40 MG/ML IM ONE (15:12)
--- NOTE | 2023-04-28 19:25 | XRAY ---
Indication: Right hip injection. Intraoperative fluoroscopy provided for 12 seconds. Single digital spot image submitted for interpretation demonstrates needle tip projecting lateral to right femur neck. Small amount of contrast injected for needle tip placement. Correlate with intraoperative findings/report.
--- NOTE | 2023-04-28 19:28 | XRAY ---
Indication: Right shoulder and subacromial bursa injection. Intraoperative fluoroscopy provided for 27 seconds. 3 digital spot image submitted for interpretation demonstrates needle tip projecting over the right glenohumeral joint superiorly. Second needle tip subacromial. Small amount of contrast injected for both needle tip placement. Correlate with intraoperative findings/report.
--- NOTE | 2023-04-29 10:04 | XRAY ---
27 seconds of fluoroscopy was used in surgery for a right intra-articular shoulder and subacromial bursa injection.
--- NOTE | 2023-04-29 10:05 | XRAY ---
12 seconds of fluoroscopy was used in surgery for a right intra-articular hip injection.
== END 2023-04-28 17:10 | disposition home or self-care (01) ==
LOC: SDC-PAIN 15:11
PROVIDERS: ATTEND Psychiatry & Neurology Pain Medicine
DX: M19.011 Primary osteoarthritis, right shoulder (principal); M75.51 Bursitis of right shoulder; M16.11 Unilateral primary osteoarthritis, right hip; Z79.899 Other long term (current) drug therapy
CPT/HCPCS: 20610; 73030; 73501; 77002; J1030; J2001; Q9966

== ENCOUNTER 2023-06-16 14:04 | Day surgery (SDC) | payer MEDICARE ==
[2023-06-16] MEDS ORDERED: Depo-Medrol 40 MG/ML IM ONE (14:05)
[2023-06-16] MEDS ORDERED: BUPIVACAINE 0.5% VIAL IJ ONE (14:05)
[2023-06-16] MEDS ORDERED: XYLOCAINE 1% HCL 20 ML MDV IJ ONE (14:05)
[2023-06-16] MEDS ORDERED: DIPRIVAN 200 MG/20 ML IV ONE (16:28)
[2023-06-16] MEDS ORDERED: Lactated Ringers 1,000 ML IV ONE (18:04)
--- NOTE | 2023-06-16 20:49 | XRAY ---
Indication: Right L4-S1 RFA. Intraoperative fluoroscopy provided for 23 seconds. 3 digital spot images submitted for interpretation demonstrates posterior needle tips projecting over the expected right L4-S1 nerve roots. Correlate with intraoperative findings/report.
--- NOTE | 2023-06-17 09:54 | XRAY ---
23 seconds of fluoroscopy was used in surgery for a right L4-S1 RFA.
== END 2023-06-16 16:58 | disposition home or self-care (01) ==
LOC: SDC-PAIN 14:04
PROVIDERS: ATTEND Psychiatry & Neurology Pain Medicine
DX: M47.816 Spondylosis without myelopathy or radiculopathy, lumbar region (principal); Z79.899 Other long term (current) drug therapy
CPT/HCPCS: 64635; 64636; 72100; 77002; J1030; J2704

== ENCOUNTER 2023-06-23 13:52 | Day surgery (SDC) | payer MEDICARE ==
[2023-06-23] MEDS ORDERED: LIDOCAINE HCL 1% 50 MG/5 ML VL PF IJ ONE (13:53)
[2023-06-23] MEDS ORDERED: BUPIVACAINE 0.5% VIAL IJ ONE (13:53)
[2023-06-23] MEDS ORDERED: Depo-Medrol 40 MG/ML IM ONE (13:53)
[2023-06-23] MEDS ORDERED: DIPRIVAN 200 MG/20 ML IV ONE (15:36)
[2023-06-23] MEDS ORDERED: Lactated Ringers 1,000 ML IV ONE (15:50)
--- NOTE | 2023-06-23 16:56 | XRAY ---
Indication: Left L4-S1 RFA. Intraoperative fluoroscopy provided for 21 seconds. 3 digital spot image submitted for interpretation demonstrates posterior needle tips projecting over the expected left L4-S1 nerve roots. Correlate with intraoperative findings/report.
--- NOTE | 2023-06-23 17:34 | XRAY ---
21 seconds of fluoroscopy was used in surgery for a left L4-S1 RFA.
== END 2023-06-23 16:03 | disposition home or self-care (01) ==
LOC: SDC-PAIN 13:52
PROVIDERS: ATTEND Psychiatry & Neurology Pain Medicine
DX: M47.816 Spondylosis without myelopathy or radiculopathy, lumbar region (principal); Z79.899 Other long term (current) drug therapy
CPT/HCPCS: 64635; 64636; 72100; 77002; J1030; J2001; J2704; Q9966

== ENCOUNTER 2023-06-26 11:41 | Emergency (ER) | payer MEDICARE ==
[2023-06-26 11:55] VITALS: TEMP 97.7
[2023-06-26] MEDS ORDERED: Nitrostat 0.4 MG (ED) SL ONE ×3 (11:56→13:49)
[2023-06-26] MEDS ORDERED: BABY ASPIRIN 81 MG CHEW PO ONE (11:56)
--- NOTE | 2023-06-26 11:56 | ERPHSYRPT ---
- History of Present Illness Time Seen by Provider: 06/26/23 11:55 Historian: patient Exam Limitations: no limitations Patient Subjective Stated Complaint: Pt c/o of chest pain since yesterday Triage Nursing Assessment: Pt brought to the ER by a friend, hypertensive, rates chest pain as 8/10, pulses normal, skin n/w/d, smoker, brought in by wheel chair, pt appears more concerned with his blood pressure than the pain Physician History: 67-year-old male presents the emergency room with a 2-day history of left-sided chest pain with radiation to his left arm. He states that 2 days ago the chest pain woke him up from sleep. He describes the pain as a tightness or pressure that he rates as a 10 out of 10 currently. He took 2 aspirin prior to arrival. He has a history of hypertension, hyperlipidemia and currently smokes tobacco and marijuana. He has a strong family history of CAD. He reports some sort of shortness of breath with exertion but denies PND or orthopnea. 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 Timing/Duration: day(s) (2.) Activities at Onset: activity, rest Quality: pressure, tightness Location: substernal Chest Pain Radiation: arm Severity of Pain-Max: severe Severity of Pain-Current: severe Modifying Factors: Improves With: nothing. Worsens With: exertion Associated Symptoms: heartburn, shortness of breath, No nausea, No vomiting, No palpitations, No abdominal pain, No cough, No hurts to breathe Prior Chest Pain/Cardiac Workup: no prior chest pain Nitro Today/Relief: 0.4 mg x 2, provided by ED Aspirin Treatment Today: 81 mg x 4, provided by ED Allergies/Adverse Reactions: iron Adverse Reaction (Verified 06/26/23 11:54) black stool, kidney failure Home Medications: Amlodipine Besylate 5 mg [Norvasc 5 mg] 5 mg PO DAILY 05/28/22 [History] Atorvastatin Calcium [Lipitor 20MG Tablet] 20 mg PO HS 05/28/22 [History] Cyclobenzaprine HCl 10 mg [Cyclobenzaprine 10 MG] 10 mg PO Q12H PRN PRN 05/28/22 [History] Fenofibrate,Micronized [Fenofibrate] 134 mg PO DAILY 05/28/22 [History] Omeprazole 20 mg PO DAILY 05/28/22 [History] Polyethylene Glycol 3350 [Miralax] 17 gm PO Q12H PRN PRN 05/28/22 [History] lisinopriL [Lisinopril] 40 mg PO DAILY 05/28/22 [History] Hx Tetanus, Diphtheria Vaccination/Date Given: Yes Hx Influenza Vaccination/Date Given: Yes Hx Pneumococcal Vaccination/Date Given: No Travel Risk - International Travel Have you traveled outside of the country in past 3 weeks: No - Coronavirus Screening Are you exhibiting any of the following symptoms?: No Close contact with a COVID-19 positive Pt in past 14-21 Days: No - Vaccine Status Have you recieved a Covid-19 vaccination: Yes [employer]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: [employer] - Vaccination Dates Date of 2cond Vaccination (if applicable): UNKNOWN - Review of Systems Constitutional: No Symptoms Eyes: No Symptoms Ears, Nose, & Throat: No Symptoms Respiratory: Dyspnea on Exertion (ALBERTO) Cardiac: Chest Pain, No Edema, No Palpitations, No Orthopnea, No PND Abdominal/Gastrointestinal: No Symptoms Genitourinary Symptoms: No Symptoms Musculoskeletal: No Symptoms Skin: No Symptoms Neurological: No Symptoms Psychological: No Symptoms Endocrine: No Symptoms Hematologic/Lymphatic: No Symptoms Immunological/Allergic: No Symptoms All Other Systems: Reviewed and Negative - Past Medical History Pertinent Past Medical History: Yes Neurological History: No Pertinent History ENT History: No Pertinent History Cardiac History: High Cholesterol, Hypertension Respiratory History: COPD Endocrine Medical History: No Pertinent History Musculoskeletal History: Osteoarthritis GI Medical History: GERD, Polyps History: No Pertinent History Psycho-Social History: No Pertinent History Male Reproductive Disorders: No Pertinent History Other Medical History: Anemia - Past Surgical History Past Surgical History: Yes Neuro Surgical History: No Pertinent History Cardiac: No Pertinent History Respiratory: No Pertinent History Gastrointestinal: Appendectomy, Cholecystectomy, Hernia Repair Genitourinary: No Pertinent History Musculoskeletal: Orthopedic Surgery Male Surgical History: No Pertinent History Other Surgical History: MULTIPLES knee surgery, colon polyps removed - Social History Smoking Status: Current every day smoker How long have you smoked: 45 YEARS Exposure to second hand smoke: Yes Drug Use: marijuana Patient Lives Alone: Yes - Nursing Vital Signs Nursing Vital Signs: Initial Vital Signs Temperature 97.7 F 06/26/23 11:47 Pulse Rate 77 06/26/23 11:47 Respiratory Rate 23 06/26/23 11:47 Blood Pressure 186/112 06/26/23 11:47 O2 Sat by Pulse Oximetry 98 06/26/23 11:47 Pain Scale Pain Intensity 4 - Physical Exam General Appearance: mild distress, alert Eye Exam: PERRL/EOMI, eyes nml inspection Ears, Nose, Throat Exam: normal ENT inspection Neck Exam: normal inspection, supple, full range of motion Respiratory Exam: normal breath sounds, lungs clear, airway intact, No chest tenderness, No respiratory distress Cardiovascular Exam: regular rate/rhythm, normal heart sounds, capillary refill <2 sec Gastrointestinal/Abdomen Exam: soft, normal bowel sounds, No tenderness, No distention, No guarding, No rebound Back Exam: normal inspection Extremity Exam: normal inspection Neurologic Exam: alert, oriented x 3, cooperative Skin Exam: normal color, warm, dry SpO2 Interpretation: normal SpO2: 98 O2 Delivery: Room Air - Course Nursing assessment & vital signs reviewed: Yes EKG Interpreted by Me: RATE (72), Sinus Rhythm, NORMAL AXIS, Other (ST depression in V4, NJ interval 180) - Radiology Exams Chest X-ray Interpretation: Interpreted by me, Negative Ordered Tests: Active Orders 24 hr Category Date Time Status 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 STAT Care 06/26/23 11:56 Completed Clean Catch Urine Specimen STAT Care 06/26/23 11:58 Completed EKG-ER Only STAT Care 06/26/23 11:56 Completed EKG-ER Only STAT Care 06/26/23 13:49 Completed IV Insertion STAT Care 06/26/23 11:56 Completed Pulse Oximetry (ED) STAT Care 06/26/23 11:56 Completed CHEST 1 VIEW (PORTABLE) Stat Exams 06/26/23 11:56 Completed CBC W DIFF Stat Lab 06/26/23 12:05 Completed CMP Stat Lab 06/26/23 12:05 Completed NT PRO BNPII Stat Lab 06/26/23 12:05 Completed PROTIME WITH INR Stat Lab 06/26/23 12:05 Completed PTT Stat Lab 06/26/23 12:05 Completed TROPONIN Q4H Lab 06/26/23 12:05 Completed TROPONIN Q4H Lab 06/26/23 15:55 Completed TROPONIN Q4H Lab 06/26/23 20:06 Completed TSH [TSH, 3RD Generation] Stat Lab 06/26/23 12:05 Completed Urine Triage Profile Stat Lab 06/26/23 12:28 Completed EKG STAT RT 06/26/23 19:30 Completed Respiratory Therapy Assessment DAILY RT 06/26/23 18:10 Completed Medication Summary Discontinued Medications Generic Name Dose Route Start Last Admin Trade Name Dayan PRN Reason Stop Dose Admin Albuterol/Ipratropium 3 ml 06/26/23 17:53 06/26/23 18:12 Ipratropium/Albuterol Sulfate 3 Ml Ampul.Neb IH 06/26/23 17:54 3 ml STAT ONE Administration Albuterol/Ipratropium Confirm 06/26/23 18:08 Ipratropium/Albuterol Sulfate 3 Ml Ampul.Neb Administered 06/26/23 18:09 Dose 3 ml IH .STK-MED ONE Aspirin 162 mg 06/26/23 11:56 06/26/23 11:59 Aspirin 81 Mg Tab.Chew PO 06/26/23 11:57 162 mg STAT ONE Administration Atorvastatin Calcium 80 mg 06/26/23 14:02 06/26/23 14:05 Atorvastatin Calcium 40 Mg Tablet PO 06/26/23 14:03 80 mg STAT STA Administration Atorvastatin Calcium Confirm 06/26/23 14:05 Atorvastatin Calcium 40 Mg Tablet Administered 06/26/23 14:06 Dose 80 mg .ROUTE .STK-MED ONE Carvedilol 12.5 mg 06/26/23 14:02 06/26/23 14:18 Carvedilol 12.5 Mg Tablet PO 06/26/23 14:03 12.5 mg ONCE ONE Administration Labetalol HCl 10 mg 06/26/23 11:58 06/26/23 14:19 Labetalol Hcl 20 Mg/4 Ml Disp.Syringe IV 06/26/23 11:59 Not Given STAT ONE Nitroglycerin 0.4 mg 06/26/23 11:56 06/26/23 12:00 Nitroglycerin 0.4 Mg (Ed) 0.4 Mg Tab.Subl SL 06/26/23 11:57 0.4 mg STAT ONE Administration Nitroglycerin 0.4 mg 06/26/23 13:45 06/26/23 13:48 Nitroglycerin 0.4 Mg (Ed) 0.4 Mg Tab.Subl SL 06/26/23 13:46 0.4 mg STAT ONE Administration Nitroglycerin Confirm 06/26/23 13:49 Nitroglycerin 0.4 Mg (Ed) 0.4 Mg Tab.Subl Administered 06/26/23 13:50 Dose 0.4 mg SL .STK-MED ONE Lab/Rad Data: Laboratory Result Diagrams 06/26/23 12:05 06/26/23 12:05 Laboratory Results 06/26/23 06/26/23 06/26/23 Range/Units 20:06 15:55 12:28 WBC (4.0-10.5) x10^3/uL RBC (4.1-5.6) x10^6/uL Hgb (12.5-18.0) g/dL Hct (42-50) % MCV (78-100) fL MCH (26-32) pg MCHC (32-36) g/dL RDW (11.5-14.0) % Plt Count (150-450) x10^3/uL MPV (7.5-11.0) fL Gran % (36.0-66.0) % Immature Gran % (Auto) (0.00-0.4) % Nucleat RBC Rel Count (0.00-0.1) % Eos # (Auto) (0-0.5) x10^3/uL Immature Gran # (Auto) (0.00-0.03) x10^3u/L Absolute Lymphs (auto) (1.0-4.6) x10^3/uL Absolute Monos (auto) (0.0-1.3) x10^3/uL Absolute Nucleated RBC (0.00-0.01) x10^3u/L Lymphocytes % (24.0-44.0) % Monocytes % (0.0-12.0) % Eosinophils % (0.00-5.0) % Basophils % (0.0-0.4) % Absolute Granulocytes (1.4-6.9) x10^3/uL Basophils # (0-0.4) x10^3/uL PT (9.4-12.5) SECONDS INR (0.8-3.0) APTT (25.1-36.5) SECONDS Sodium (137-145) mmol/L Potassium (3.5-5.1) mmol/L Chloride (98-107) mmol/L Carbon Dioxide (22-30) mmol/L Anion Gap (5-15) MEQ/L BUN (9-20) mg/dL Creatinine (0.66-1.25) mg/dL Estimated GFR ML/MIN Glucose (74-106) mg/dL Calcium (8.4-10.2) mg/dL Total Bilirubin (0.2-1.3) mg/dL AST (17-59) U/L ALT (0-50) U/L Alkaline Phosphatase (38-126) U/L Troponin I 1.110 H* 0.820 H* (0.000-0.034) ng/mL NT-Pro-B Natriuret Pep (<300) pg/mL Serum Total Protein (6.3-8.2) g/dL Albumin (3.5-5.0) g/dL TSH 3rd Generation (0.47-4.68) mIU/L Urine Opiates Level NEGATIVE (NEGATIVE) Ur Methadone NEGATIVE (NEGATIVE) Urine Barbiturates NEGATIVE (NEGATIVE) Ur Phencyclidine (PCP) NEGATIVE (NEGATIVE) Urine Amphetamine NEGATIVE (NEGATIVE) U Benzodiazepine Level NEGATIVE (NEGATIVE) Urine Cocaine NEGATIVE (NEGATIVE) Urine Marijuana (THC) POSITIVE (NEGATIVE) 06/26/23 06/26/23 06/26/23 Range/Units 12:05 12:05 12:05 WBC (4.0-10.5) x10^3/uL RBC (4.1-5.6) x10^6/uL Hgb (12.5-18.0) g/dL Hct (42-50) % MCV (78-100) fL MCH (26-32) pg MCHC (32-36) g/dL RDW (11.5-14.0) % Plt Count (150-450) x10^3/uL MPV (7.5-11.0) fL Gran % (36.0-66.0) % Immature Gran % (Auto) (0.00-0.4) % Nucleat RBC Rel Count (0.00-0.1) % Eos # (Auto) (0-0.5) x10^3/uL Immature Gran # (Auto) (0.00-0.03) x10^3u/L Absolute Lymphs (auto) (1.0-4.6) x10^3/uL Absolute Monos (auto) (0.0-1.3) x10^3/uL Absolute Nucleated RBC (0.00-0.01) x10^3u/L Lymphocytes % (24.0-44.0) % Monocytes % (0.0-12.0) % Eosinophils % (0.00-5.0) % Basophils % (0.0-0.4) % Absolute Granulocytes (1.4-6.9) x10^3/uL Basophils # (0-0.4) x10^3/uL PT 10.3 (9.4-12.5) SECONDS INR 0.94 (0.8-3.0) APTT 26.1 (25.1-36.5) SECONDS Sodium (137-145) mmol/L Potassium (3.5-5.1) mmol/L Chloride (98-107) mmol/L Carbon Dioxide (22-30) mmol/L Anion Gap (5-15) MEQ/L BUN (9-20) mg/dL Creatinine (0.66-1.25) mg/dL Estimated GFR ML/MIN Glucose (74-106) mg/dL Calcium (8.4-10.2) mg/dL Total Bilirubin (0.2-1.3) mg/dL AST (17-59) U/L ALT (0-50) U/L Alkaline Phosphatase (38-126) U/L Troponin I 0.052 H* (0.000-0.034) ng/mL NT-Pro-B Natriuret Pep (<300) pg/mL Serum Total Protein (6.3-8.2) g/dL Albumin (3.5-5.0) g/dL TSH 3rd Generation 2.570 (0.47-4.68) mIU/L Urine Opiates Level (NEGATIVE) Ur Methadone (NEGATIVE) Urine Barbiturates (NEGATIVE) Ur Phencyclidine (PCP) (NEGATIVE) Urine Amphetamine (NEGATIVE) U Benzodiazepine Level (NEGATIVE) Urine Cocaine (NEGATIVE) Urine Marijuana (THC) (NEGATIVE) 06/26/23 06/26/23 Range/Units 12:05 12:05 WBC 12.0 H (4.0-10.5) x10^3/uL RBC 4.89 (4.1-5.6) x10^6/uL Hgb 14.5 (12.5-18.0) g/dL Hct 45.8 (42-50) % MCV 93.7 (78-100) fL MCH 29.7 (26-32) pg MCHC 31.7 L (32-36) g/dL RDW 14.6 H (11.5-14.0) % Plt Count 309 (150-450) x10^3/uL MPV 10.0 (7.5-11.0) fL Gran % 68.1 H (36.0-66.0) % Immature Gran % (Auto) 1.0 H (0.00-0.4) % Nucleat RBC Rel Count 0.0 (0.00-0.1) % Eos # (Auto) 0.26 (0-0.5) x10^3/uL Immature Gran # (Auto) 0.12 H (0.00-0.03) x10^3u/L Absolute Lymphs (auto) 2.38 (1.0-4.6) x10^3/uL Absolute Monos (auto) 0.96 (0.0-1.3) x10^3/uL Absolute Nucleated RBC 0.00 (0.00-0.01) x10^3u/L Lymphocytes % 19.9 L (24.0-44.0) % Monocytes % 8.0 (0.0-12.0) % Eosinophils % 2.2 (0.00-5.0) % Basophils % 0.8 (0.0-0.4) % Absolute Granulocytes 8.15 H (1.4-6.9) x10^3/uL Basophils # 0.10 (0-0.4) x10^3/uL PT (9.4-12.5) SECONDS INR (0.8-3.0) APTT (25.1-36.5) SECONDS Sodium 140 (137-145) mmol/L Potassium 4.3 (3.5-5.1) mmol/L Chloride 102 (98-107) mmol/L Carbon Dioxide 26 (22-30) mmol/L Anion Gap 16.9 H (5-15) MEQ/L BUN 26 H (9-20) mg/dL Creatinine 1.61 H (0.66-1.25) mg/dL Estimated GFR 46.0 ML/MIN Glucose 108 H (74-106) mg/dL Calcium 9.3 (8.4-10.2) mg/dL Total Bilirubin 0.30 (0.2-1.3) mg/dL AST 31 (17-59) U/L ALT 39 (0-50) U/L Alkaline Phosphatase 74 (38-126) U/L Troponin I (0.000-0.034) ng/mL NT-Pro-B Natriuret Pep 75.4 (<300) pg/mL Serum Total Protein 7.8 (6.3-8.2) g/dL Albumin 4.7 (3.5-5.0) g/dL TSH 3rd Generation (0.47-4.68) mIU/L Urine Opiates Level (NEGATIVE) Ur Methadone (NEGATIVE) Urine Barbiturates (NEGATIVE) Ur Phencyclidine (PCP) (NEGATIVE) Urine Amphetamine (NEGATIVE) U Benzodiazepine Level (NEGATIVE) Urine Cocaine (NEGATIVE) Urine Marijuana (THC) (NEGATIVE) - Progress Progress: improved Air Movement: good Progress Note: Initial troponin came back elevated at 0.052. Repeat EKG showed sinus rhythm at 72 bpm and RSR prime in leads II, III and aVF. No ST elevation or depression appreciated on repeat EKG. I discussed possible transfer with the patient who prefers going to [facility]. We will initiate transfer at this time. 06/26/23 13:49 06/26/23 15:[address] Garner who is the jogger operator on-call at [facility] regarding patient transfer. He agrees to consult on the case and recommends starting carvedilol 12.5 mg and giving 80 mg of atorvastatin. He excepted at 1400. I then spoke with Dr. Grace at 1408 who also agreed to accept the patient to the cardiac floor. Second troponin came back elevated at 0 point 8 repeat EKG showed no significant changes. In hospital was called and notified that there was an increase in his troponin level. A second nitro was given with good pain improvement once again. DuoNeb was given to patient for borderline oxygenation saturation at low to mid 90s and audible wheezing. He responded well to the neb. Medical Desision Making - Discussion of managment Care discussed with:: specialist (Pascual) Reviewed:: Test results Agreed on:: Treatment plan, place in obs Will see patient: in hospital - Diagnostic Testing Diagnostic test were ordered, analyzed, and reviewed by me: Yes Radiological Interpretation: Interpreted by me, Reviewed by me - Risk of complications The pt has a mod risk of morbidity or mortality based on: Need for prescription drug management The pt has a high risk of morbidity or mortality based on: Decision regarding hospitilization or escalation of hosp level of care - Departure Departure Disposition: Transfer ([facility]) Clinical Impression: RODRIGO (acute kidney injury), Angina at rest, Elevated troponin, NSTEMI (non-ST elevated myocardial infarction), Tetrahydrocannabinol (THC) use disorder, mild, abuse, Smoker, Hypertension Condition: Stable Critical Care Time: No Referrals: SANDHYA RAMEY [Primary Care Provider] - Follow up/PCP as directed Instructions: Chest Pain (DC)
[2023-06-26] MEDS ORDERED: TRANDATE 20 MG/4 ML SYRINGE IV ONE (11:58)
[2023-06-26 12:15] LABS: Absolute Neutrophil Ct (ANC) 8.15 x10^3/uL (1.4-6.9); BASOPHIL % 0.8 % (0.0-0.4); Eosinophil % 2.2 % (0.00-5.0); Eosinophil (Absolute #) 0.26 x10^3/uL (0-0.5); Hematocrit 45.8 % (42-50); Hemoglobin 14.5 g/dL (12.5-18.0); IMMATURE GRAN # 0.12 x10^3u/L (0.00-0.03); Lymphocyte (Absolute #) 2.38 x10^3/uL (1.0-4.6); Lymphocytes % 19.9 % (24.0-44.0); Mean Cell Volume 93.7 fL (78-100); Mean Corpuscular Hemoglobin 29.7 pg (26-32); Mean Corpuscular Hgb Concent. 31.7 g/dL (32-36); Monocyte (Absolute #) 0.96 x10^3/uL (0.0-1.3); Neutrophil % 68.1 % (36.0-66.0); Platelet Count 309 x10^3/uL (150-450); Red Blood Count 4.89 x10^6/uL (4.1-5.6); Red Cell Distribution Width 14.6 % (11.5-14.0)
[2023-06-26 12:36] LABS: INR 0.94 (0.8-3.0); PROTIME 10.3 SECONDS (9.4-12.5); PTT 26.1 SECONDS (25.1-36.5)
[2023-06-26 12:48] LABS: Amphetamine,Urine NEGATIVE (NEGATIVE); Barbiturate,Urine NEGATIVE (NEGATIVE); Benzodiazepine,Urine NEGATIVE (NEGATIVE); Cocaine,Urine NEGATIVE (NEGATIVE); Methadone,Urine NEGATIVE (NEGATIVE); Opiate,Urine NEGATIVE (NEGATIVE); PCP,Urine NEGATIVE (NEGATIVE); THC,Urine POSITIVE (NEGATIVE)
[2023-06-26 12:54] LABS: ALBUMIN 4.7 g/dL (3.5-5.0); ANION GAP 16.9 MEQ/L (5-15); BILIRUBIN,TOTAL 0.3 mg/dL (0.2-1.3); Calcium 9.3 mg/dL (8.4-10.2); Creatinine 1 1.61 mg/dL (0.66-1.25); NT PRO BNPII 75.4 pg/mL (<300); Potassium 4.3 mmol/L (3.5-5.1); Total Protein 7.8 g/dL (6.3-8.2)
[2023-06-26] MEDS ORDERED: LIPITOR 40MG PO STA (14:02)
[2023-06-26] MEDS ORDERED: COREG 12.5 MG PO ONE (14:02)
[2023-06-26] MEDS ORDERED: LIPITOR 40MG ONE (14:05)
[2023-06-26] MEDS ORDERED: DUONEB 0.5-3 MG/3 ml Neb IH ONE ×2 (17:53→18:08)
--- NOTE | 2023-06-26 20:11 | XRAY ---
Indication: Chest pain. Comparison: November 30, 2014 Portable apical lordotic chest again demonstrates normal heart and lungs. Bony thorax intact. No new/acute findings.
[2023-06-26 20:15] VITALS: BP 140/81; PULSE 78; RESP 23
[2023-06-27 00:13] VITALS: O2SAT 98
== END 2023-06-26 20:57 | disposition short-term general hospital (02) ==
LOC: ED 11:41
DX: I21.4 Non-ST elevation (NSTEMI) myocardial infarction (principal); N17.9 Acute kidney failure, unspecified; I20.9 Angina pectoris, unspecified; R77.8 Other specified abnormalities of plasma proteins; F12.10 Cannabis abuse, uncomplicated; Z72.0 Tobacco use; I10 Essential (primary) hypertension; R07.9 Chest pain, unspecified; E78.5 Hyperlipidemia, unspecified; Z79.899 Other long term (current) drug therapy
CPT/HCPCS: 36000; 36415; 71045; 80053; 80307; 83880; 84443; 84484; 85025; 85610; 85730; 93005; 93041; 94640; 94760; 99285; A9270-GY

== ENCOUNTER 2023-09-29 15:57 | Day surgery (SDC) | payer MEDICARE ==
[2023-09-29] MEDS ORDERED: XYLOCAINE-MPF 1% 5ML SDV IJ ONE (15:58)
[2023-09-29] MEDS ORDERED: Depo-Medrol 40 MG/ML IM ONE (15:58)
[2023-09-29] MEDS ORDERED: BUPIVACAINE 0.5% VIAL IJ ONE (15:58)
--- NOTE | 2023-09-29 20:48 | XRAY ---
Indication: Bilateral SI joint injection. Intraoperative fluoroscopy provided for 16 seconds. 4 digital spot image submitted for interpretation demonstrates posterior needle tip projecting over the expected left and right SI joint. Correlate with intraoperative findings/report.
--- NOTE | 2023-09-29 21:46 | XRAY ---
16 seconds of fluoroscopy was used in surgery for bilateral sacroiliac joint injections.
== END 2023-09-29 18:29 | disposition home or self-care (01) ==
LOC: SDC-PAIN 15:57
PROVIDERS: ATTEND Psychiatry & Neurology Pain Medicine
DX: M19.012 Primary osteoarthritis, left shoulder (principal); M19.011 Primary osteoarthritis, right shoulder
CPT/HCPCS: 27096; 72202; 77002; G0260; J1030

== ENCOUNTER 2024-01-17 05:56 | Day surgery (SDC) | payer MEDICARE ==
[2024-01-17] MEDS: Lactated Ringers 1,000 ML IV SCH (06:17)
[2024-01-17] MEDS ORDERED: Sodium Chloride 3 ML UD NEBULES IH ONE (06:53)
[2024-01-17 06:55] LABS: Creatinine 1 1.53 mg/dL (0.66-1.25); EST GLOMERULAR FILTRATION RATE 49.8 ML/MIN; Potassium 4.5 mmol/L (3.5-5.1)
[2024-01-17] MEDS: Xopenex 1.25 MG/0.5 ML UD NEBULE IH ONE (06:55)
[2024-01-17] MEDS ORDERED: Versed 2 MG/2 ML Injection ONE (07:19)
[2024-01-17] MEDS ORDERED: DIPRIVAN 200 MG/20 ML IV ONE ×2 (07:19→07:41)
[2024-01-17 08:23] VITALS: RESP 18; O2SAT 93
[2024-01-17 08:33] VITALS: BP 127/75; PULSE 77; TEMP 97.1
--- NOTE | 2024-01-17 11:02 | OP ---
SURGERY DATE/TIME: 01/17/2024 0828 PREOPERATIVE DIAGNOSES: 1) Epigastric pain. 2) Screening colon examination. POSTOPERATIVE DIAGNOSES: 1) Moderate gastritis. 2) Sigmoid diverticulosis. PROCEDURES: 1) Esophagogastroduodenoscopy with cold forceps biopsy. 2) Colonoscopy. SURGEON: Dr. Billingsley. ANESTHESIA: Medications were given by the anesthesia department. HISTORY: The patient is a 68-year-old white male patient presenting now for endoscopic evaluation. He was appraised of the risks of the procedure including the risk of perforation, phlebitis, untoward reaction to medication, bleeding and missed lesions. The patient verbalized his understanding and desired to have the procedure performed. DESCRIPTION OF PROCEDURE: The patient was given the medications by the anesthesia department. He had continuous pulse oximetry, ECG monitoring and intermittent blood pressure monitoring during the examination. He was placed in the left lateral decubitus position. A bite block was placed and the flexible Olympus gastroscope was used to intubate the oropharynx. A view of the larynx was normal. The scope was easily introduced in the esophagus, which appeared to be essentially normal throughout its length. The stomach was entered where normal gastric rugal folds were seen and these distended nicely with insufflation of air. The scope was passed along the greater curvature of the stomach to the antrum. The pylorus encountered and intubated. The duodenum inspected and found to be normal. The scope is withdrawn towards the stomach. A retroflex view was obtained of the lesser curvature, fundus and cardia regions of the stomach again. A retroflex view was obtained of the lesser curvature, fundus and cardia regions of the stomach and these appeared to be normal. The scope is redirected towards the gastric antrum where there were some moderate gastritis is noted and biopsies were obtained to confirm the presence of gastritis and to rule out Helicobacter pylori-type organism. The scope was then removed from the patient. Next, a digital rectal examination was performed and revealed external hemorrhoids, mildly stenotic anal area, no masses and a normal prostate. The flexible Olympus pediatric colonoscope was used to intubate the rectum. A view of the colon was developed sequentially to the cecum. Upon insertion and withdrawal including retroflex view in the rectum, there was noted to be moderate sigmoid diverticulosis but no other mucosal lesions were encountered. The scope was removed from the patient who tolerated the procedure well and was sent to OP recovery in good condition. The prep was noted to be fair to poor.
== END 2024-01-17 08:45 | disposition home or self-care (01) ==
LOC: SDC 05:56
PROVIDERS: ATTEND Family Medicine
DX: Z12.11 Encounter for screening for malignant neoplasm of colon (principal); R10.13 Epigastric pain; K29.70 Gastritis, unspecified, without bleeding; K57.30 Diverticulosis of large intestine without perforation or abscess without bleeding; K64.4 Residual hemorrhoidal skin tags
CPT/HCPCS: 36415; 80048; 93005; 94640; J2250; J2704; A9270-GY

== ENCOUNTER 2024-09-06 10:08 | Day surgery (SDC) | payer MEDICARE, OTHER ==
[2024-09-06] MEDS ORDERED: BUPIVACAINE 0.5% VIAL IJ ONE (10:09)
[2024-09-06] MEDS ORDERED: Depo-Medrol 40 MG/ML IM ONE (10:09)
[2024-09-06] MEDS ORDERED: LIDOCAINE HCL 1% AMPUL 5 ML IJ ONE (10:09)
[2024-09-06] MEDS ORDERED: DIPRIVAN 200 MG/20 ML IV ONE (11:53)
[2024-09-06] MEDS ORDERED: MORPHINE SULFATE 2 MG INJ ONE (12:05)
--- NOTE | 2024-09-06 13:45 | XRAY ---
Indication: Right L4-S1 RFA. Intraoperative fluoroscopy provided for 24 seconds. 7 digital spot image submitted for interpretation demonstrates posterior needle tips projecting over the expected right L4-S1 nerve roots. Correlate with intraoperative findings/report.
--- NOTE | 2024-09-06 14:54 | XRAY ---
24 seconds of fluoroscopy was used in surgery for a right L4-S1 RFA.
== END 2024-09-06 12:29 | disposition home or self-care (01) ==
LOC: SDC-PAIN 10:08
PROVIDERS: ATTEND Psychiatry & Neurology Pain Medicine
DX: M47.816 Spondylosis without myelopathy or radiculopathy, lumbar region (principal)
CPT/HCPCS: 72100; 77002; J2270; J2704

== ENCOUNTER 2024-09-20 10:55 | Day surgery (SDC) | payer MEDICARE ==
[2024-09-20] MEDS ORDERED: LIDOCAINE HCL 1% AMPUL 5 ML IJ ONE (10:56)
[2024-09-20] MEDS ORDERED: Depo-Medrol 40 MG/ML IM ONE (10:56)
[2024-09-20] MEDS ORDERED: BUPIVACAINE 0.5% VIAL IJ ONE (10:56)
[2024-09-20] MEDS ORDERED: DIPRIVAN 200 MG/20 ML IV ONE (12:27)
[2024-09-20] MEDS ORDERED: Sodium Chloride 0.9% 250 ML 500 ML IV ONE (13:47)
--- NOTE | 2024-09-20 14:37 | XRAY ---
Indication: Left L4-S1 RFA. Intraoperative fluoroscopy provided for 25 seconds. 5 digital spot image submitted for interpretation demonstrates posterior needle tips projecting over the expected left L4-S1 nerve roots. Correlate with operative findings/report.
--- NOTE | 2024-09-20 17:10 | XRAY ---
25 seconds of fluoroscopy was used in surgery for a left L4-S1 RFA.
== END 2024-09-20 13:33 | disposition home or self-care (01) ==
LOC: SDC-PAIN 10:55
PROVIDERS: ATTEND Psychiatry & Neurology Pain Medicine
DX: M47.816 Spondylosis without myelopathy or radiculopathy, lumbar region (principal)
CPT/HCPCS: 64635; 64636; 72100; 77002; J2704

== ENCOUNTER 2024-10-11 16:02 | Day surgery (SDC) | payer MEDICARE ==
[2024-10-11] MEDS ORDERED: BUPIVACAINE 0.5% VIAL IJ ONE (16:03)
[2024-10-11] MEDS ORDERED: LIDOCAINE HCL 1% AMPUL 5 ML IJ ONE (16:03)
[2024-10-11] MEDS ORDERED: Depo-Medrol 40 MG/ML IM ONE (16:03)
--- NOTE | 2024-10-11 19:31 | XRAY ---
Indication: Right shoulder and subacromial bursa injection. Intraoperative fluoroscopy provided for 37 seconds. 5 digital spot images submitted for interpretation demonstrates needle tip projecting over right glenohumeral joint superiorly. Second needle tip subacromial. Small amount of contrast injected for needle tip placement. Correlate with intraoperative findings/report.
--- NOTE | 2024-10-11 19:36 | XRAY ---
37 seconds of fluoroscopy used in surgery for a right intra-articular shoulder and right subacromial bursa injection.
== END 2024-10-11 18:15 ==
LOC: SDC-PAIN 16:02
PROVIDERS: ATTEND Psychiatry & Neurology Pain Medicine
DX: M19.011 Primary osteoarthritis, right shoulder (principal); M75.51 Bursitis of right shoulder
CPT/HCPCS: 20610; 73030; 77002; Q9966

== ENCOUNTER 2025-05-30 14:15 | Day surgery (SDC) | payer MEDICARE ==
[2025-05-30] MEDS ORDERED: XYLOCAINE 1% HCL 20 ML MDV IJ ONE (14:16)
[2025-05-30] MEDS ORDERED: Marcaine Mpf 0.5% Vial 30 Ml IJ ONE (14:16)
[2025-05-30] MEDS ORDERED: Depo-Medrol 40 MG/ML IM ONE (14:16)
--- NOTE | 2025-05-30 16:56 | XRAY ---
Indication: Right shoulder and subacromial bursa injection. Intraoperative fluoroscopy provided for 26 seconds. 3 digital spot image submitted for interpretation demonstrates needle tip projecting over right glenohumeral joint superiorly. Second needle tip subacromial. Small amount of contrast injected for needle tip placement. Correlate with intraoperative findings/report.
--- NOTE | 2025-05-30 19:39 | XRAY ---
26 seconds of fluoroscopy were used in surgery for a right intra-articular shoulder injection and a right subacromial bursa injection.
== END 2025-05-30 16:28 | disposition home or self-care (01) ==
LOC: SDC-PAIN 14:15
PROVIDERS: ATTEND Psychiatry & Neurology Pain Medicine
DX: M19.011 Primary osteoarthritis, right shoulder (principal); M75.51 Bursitis of right shoulder